=== PATIENT | female | born 1965 | race Caucasian/White ===

== ENCOUNTER → 2017-10-24 | Outpatient (REF) | payer BC ==
[~2017-10-24] MED LIST: CIP500 PO; OND4 PO; PHENA200 PO
[2017-10-24 20:40] LABS: PLATELET COUNT, AUTOMATED 267 K/uL (150-450)
== END ==
PROVIDERS: ATTEND Physician Assistant Medical
DX: R19.7 Diarrhea, unspecified (principal); R11.0 Nausea
CPT/HCPCS: 82040; 82247; 82310; 82374; 82435; 82565; 82947; 84075; 84132; 84155; 84295; 84450; 84460; 84520; 85025